=== PATIENT | female | born 1960 | race African-American/Black ===

== ENCOUNTER 2016-09-30 19:21 | Emergency (ER) | payer MEDICARE, OTHER ==
[~2016-09-30] VITALS: Ht 157.5 cm; Wt 86.2 kg
[~2016-09-30 19:21] MED LIST: AMLODIPINE BESYL5 MG ORAL; AUGMENTIN 875-1 EAC1 ORAL; CYCLOBENZAPRINE10 MG ORAL; IBUPROFEN600 MG ORAL; IBUPROFEN600 MG PO; MECLIZINE HCL25 MG ORAL; NORCO 7.5-3251 EACH PO; ROBAXIN-750750 MG PO; UNOBMED; VALIUM5 MG PO
[2016-09-30] MEDS ORDERED: Ketorolac 60mg Inj IM ONE (20:00)
--- NOTE | 2016-09-30 20:01 | Emergency Room Report ---
History of Present Illness General Chief Complaint: Lower Back Pain or Injury Source: Patient, Medical Record Present Illness HPI 56-year-old female presents emergency department complaining of 10 out of 10 in severity low back pain that radiates down into the left thigh as well as left knee pain. Patient states she has a history of chronic pain in the low back and left knee and typically is prescribed tramadol regularly however she is out of her medication and her next appointment is on the of next month with her doctor. Patient states she does have an MRI scheduled at the end of this month. Patient states she has a history of arthritis she denies any fall or injury. Patient states that she took Motrin this morning without relief. Pt states she recently had MRI of the left knee, and has not received her results yet. Patient denies history of neoplastic disease or recent spinal procedures she denies fevers chills nausea or vomiting. Denies numbness tingling or loss of sensation or gross motor movements of the extremities, incontinence of bowel or bladder. Denies CP, Palpitations, LOC, AMS, dizziness, Changes in Vision, Sensation, paresthesias, or a sudden severe headache. Allergies: Coded Allergies: No Known Allergies (Unverified , 05/23/12) Patient History Past Medical History: see triage record Past Surgical History: none Pertinent Family History: none Now: No Immunizations: UTD Reviewed Nursing Documentation: PMH: Agreed, PSxH: Agreed Nursing Documentation-PMH Past Medical History: No History, Except For Hx Cardiac Problems: No - Gout, arthritis Hx Hypertension: Yes Hx Pacemaker: No Hx Asthma: No Hx COPD: No Hx Diabetes: No Hx Cancer: No Hx Gastrointestinal Problems: No Hx Dialysis: No Hx Neurological Problems: No Hx Cerebrovascular Accident: No Hx Seizures: No Review of Systems All Other Systems: negative except mentioned in HPI Physical Exam Vital Signs Date Time Temp Pulse Resp B/P Pulse Ox O2 Delivery O2 Flow Rate FiO2 09/30/16 19:24 98.1 88 14 152/75 100 Room Air Sp02 EP Interpretation: reviewed, normal General Appearance: no apparent distress, alert, GCS 15, non-toxic Head: normocephalic, atraumatic Eyes: bilateral eye PERRL, bilateral eye normal inspection ENT: hearing grossly normal, normal pharynx, no angioedema, normal voice Neck: full range of motion, supple/symm/no masses Respiratory: lungs clear, normal breath sounds, speaking full sentences Cardiovascular #1: regular rate, rhythm, no edema, normal capillary refill Cardiovascular #2: 2+ dorsalis pedis (R), 2+ dorsalis pedis (L) Genitourinary: no CVA tenderness Musculoskeletal: back normal, gait/station normal, normal range of motion, tender - Left sided paraspinal TTP, no erythema, bruising or obvious deformity noted. FROM with pain. TTp to the medial left knee. no increased ligamental laxity noted on PE. Neurologic: alert, oriented x3, responsive, motor strength/tone normal, sensory intact, normal gait, speech normal Psychiatric: judgement/insight normal, memory normal, mood/affect normal Reflexes: 4+ bicep (R), 4+ bicep (L), 4+ tricep (R), 4+ tricep (L), 4+ knee (R) , 4+ knee (L) Skin: normal color, no rash, warm/dry, well hydrated Lymphatic: no adenopathy Medical Decision Making PA Attestation Dr. Vasques is my supervising Physician whom patient management has been discussed with. Diagnostic Impression: Primary Impression: Sciatica of left side Additional Impression: Hx of chronic arthritis ER Course Pt. presents to the ED c/o Left -sided low back pain that shoots down the leg x 3 day(s). Pt has hx of arthritis and chronic pain. recently had MRI performed of the knee as that pain has been long standing. pt. states the shooting pain sensation is new. has MRI of L-spine scheduled for end of this month. Pt. states that she is out of her chronic pain medication Tramadol. Ddx considered but are not limited to Fracture, dislocation, contusion, epidural abscess, Sprain/Strain/Spasm Vital signs: are WNL, pt. is afebrile H&PE are most consistent with sciatica of the left side with hx of arthritis in the back, right shoulder and left knee. no evidence of infection , no saddle anesthesia. Pt. unable to tolerate straight leg raise. ORDERS: X-ray not required at this time, no spinous process tenderness. ED INTERVENTIONS: -350mg Soma PO - IM Toradol 60mg. D/w pt. to attend her appt. for MRI, and to schedule a sooner f/u appt. with her PCP for medication renewal. d/w pt. to return to ED with worsening or new symptoms. DISCHARGE: At this time pt. is stable for d/c to home. Will provide printed patient care instructions, and any necessary prescriptions. Care plan and follow up instructions have been discussed with the patient prior to discharge. Last Vital Signs Date Time Temp Pulse Resp B/P Pulse Ox O2 Delivery O2 Flow Rate FiO2 09/30/16 19:24 98.1 88 14 152/75 100 Room Air Disposition: HOME, SELF-CARE Condition: Stable Patient Instructions: Back Pain, Adult, Sciatica Additional Instructions: Take medications as directed. Follow up with PCP in 3-5 days, MRI is the study of choice for your symptoms. Return sooner to ED if new symptoms occur, or current symptoms become worse. Do not drink alcohol, drive, or operate heavy machinery while taking Flexeril as this may cause drowsiness. - Please note that this Emergency Department Report was dictated using [employer] developer technology software, occasionally this can lead to erroneous entry secondary to interpretation by the dictation equipment. Vivi Maxwell Sep 30, 2016 20:01
[2016-09-30] MEDS ORDERED: CYCLOBENZAPRINE10 MG ORAL (20:05)
[2016-09-30] MEDS ORDERED: TYLENOL EXTRA500 MG ORAL (20:05)
[2016-09-30 20:39] VITALS: BP 133/80
== END 2016-09-30 20:40 | disposition home or self-care (01) ==
LOC: EMR 20:39
DX: M54.32 Sciatica, left side (principal); M19.90 Unspecified osteoarthritis, unspecified site; I10 Essential (primary) hypertension; M25.562 Pain in left knee
CPT/HCPCS: 96372; 99283

== ENCOUNTER 2019-07-20 21:21 | Emergency (ER) | payer MEDICARE, OTHER ==
[~2019-07-20] VITALS: Ht 154.9 cm; Wt 122.5 kg
[~2019-07-20 21:21] MED LIST changes: +TYLENOL EXTRA500 MG ORAL
--- NOTE | 2019-07-20 21:45 | NUR ---
ED Nurse Note: Pt walked in to ED c/o pain on right leg, knee and foot S/P mechanical fall this AM. States legs gave out,. Pt has a laceration on right toe, pain at 10/10. Pt able to walk with steady gait but is c/o pain. VSS. Family members at bedside.
[2019-07-20] MEDS ORDERED: HYDROcodone/Acetamin 5/325 tab ORAL ONE (22:00)
--- NOTE | 2019-07-20 22:00 | NUR ---
ED Nurse Note: Xray at bedside.
--- NOTE | 2019-07-20 22:03 | Emergency Room Report ---
History of Present Illness General Chief Complaint: Lower Extremity Injury Source: Patient Present Illness HPI This is a 59-year-old female with a history of high blood pressure and osteoarthritis. She also has history of back pain. She said sometime her legs gave out. She was walking today and her left leg gave out. She fell and twisted her right knee. In the process she also sustained a laceration to her right fifth toe. It is been bleeding. Denies any fever chills. Pain is 8 out of 10. Worse with walking. Better with rest. She took a tramadol and it helps some. Denies any other injury. Denies any syncope. Denies any nausea vomiting. Allergies: Coded Allergies: No Known Allergies (Unverified , 07/20/19) Patient History Past Medical History: see triage record, old chart reviewed, HTN Past Surgical History: other Pertinent Family History: none Social History: Denies: smoking Now: No Immunizations: other Reviewed Nursing Documentation: PMH: Agreed; PSxH: Agreed Nursing Documentation-PMH Hx Cardiac Problems: No - Gout, arthritis Hx Hypertension: Yes Hx Pacemaker: No Hx Asthma: No Hx COPD: No Hx Diabetes: No Hx Cancer: No Hx Gastrointestinal Problems: No Hx Dialysis: No Hx Neurological Problems: No Hx Cerebrovascular Accident: No Hx Seizures: No Review of Systems Eye: Denies: eye pain, blurred vision ENT: Denies: ear pain, nose congestion, throat swelling Respiratory: Denies: cough, shortness of breath Cardiovascular: Denies: chest pain, palpitations Gastrointestinal: Denies: abdominal pain, diarrhea, nausea, vomiting Musculoskeletal: Reports: joint pain; Denies: back pain Skin: Denies: rash Neurological: Denies: headache, numbness Endocrine: Denies: increased thirst, increased urine Hematologic/Lymphatic: Denies: easy bruising All Other Systems: negative except mentioned in HPI Physical Exam Vital Signs Date Time Temp Pulse Resp B/P (MAP) Pulse Ox O2 Delivery O2 Flow Rate FiO2 07/20/19 21:35 98.1 20 132/66 (88) 98 Room Air Vitals normal Sp02 EP Interpretation: reviewed, normal General Appearance: well appearing, no apparent distress, alert, obese Head: normocephalic, atraumatic Eyes: bilateral eye PERRL, bilateral eye EOMI ENT: hearing grossly normal, normal pharynx Neck: full range of motion, supple, no meningismus, tender - to right paraspinous muscle Respiratory: chest non-tender, lungs clear, normal breath sounds Cardiovascular #1: regular rate, rhythm, no murmur Gastrointestinal: normal bowel sounds, non tender, no mass, no organomegaly, no bruit, non-distended Musculoskeletal: back normal, normal range of motion, tender - Right knee: She has diffuse tenderness. Knee is otherwise stable. Sensation normal. Pulse normal. Foot: Her fifth toe underneath there is a 1 cm laceration. Her toes curled underneath in the webspace is very tight. Psychiatric: mood/affect normal Procedures Splinting Splinting : Consent: Verbal Location: right knee Pre-Made Type: JAMESON wrap Pre-Proc Neuro Vasc Exam: normal Post-Proc Neuro Vasc Exam: normal Patient Tolerated: Well Complications: None Laceration/Wound Repair Laceration/Wound Repair : Consent: Verbal Wound Location: lower extremity Wound's Depth, Shape: linear Wound Length (cm): 2 Irrigated w/ Saline (ccs): 500 Betadine Prep?: Yes Anesthesia: 1% Lidocaine Volume Anesthetic (ccs): 2 Wound Repaired With: sutures Suture Size/Type: 5:0, proline Number of Sutures: 5 Patient Tolerated: Well Complications: None Medical Decision Making Diagnostic Impression: Primary Impression: Right knee sprain Qualified Codes: S83.91XA - Sprain of unspecified site of right knee, initial encounter Additional Impressions: Laceration of toe Qualified Codes: S91.114A - Laceration without foreign body of right lesser toe(s) without damage to nail, initial encounter Neck muscle strain Qualified Codes: S16.1XXA - Strain of muscle, fascia and tendon at neck level , initial encounter ER Course Patient with soft tissue injury from a fall. No fracture dislocation. Other X-Ray Diagnostic Results Other X-Ray Diagnostic Results #1: X-Ray ordered: Right knee x-rays # of Views/Limited Vs Complete: 4 View Indication: Pain EP Interpretation: Yes Interpretation: no dislocation, no soft tissue swelling, no fractures, other - Degenerative changes Impression: Other - Degenerative changes Electronically Signed by: Abhijit Chatterjee MD Other X-Ray Diagnostic Results #2: X-Ray ordered: Right toe x-rays # of Views/Limited Vs Complete: 3 View Indication: Pain EP Interpretation: Yes Interpretation: no dislocation, no soft tissue swelling, no fractures Impression: No acute disease Electronically Signed by: Abhijit Chatterjee MD Last Vital Signs Date Time Temp Pulse Resp B/P (MAP) Pulse Ox O2 Delivery O2 Flow Rate FiO2 07/20/19 21:35 98.1 20 132/66 (88) 98 Room Air Status: improved Disposition: HOME, SELF-CARE Condition: Stable Scripts Cephalexin* (KEFLEX*) 500 Mg Capsule 500 MG ORAL TID, #21 CAP Prov: Abhijit Chatterjee MD 07/20/19 Methocarbamol* (ROBAXIN-500*) 500 Mg Tablet 500 MG ORAL QID PRN for For Pain, #20 TAB 0 Refills Prov: Abhijit Chatterjee MD 07/20/19 Hydrocodone Bit/Acetaminophen 5-325* (NORCO 5-325*) 1 Each Tablet 1 TAB ORAL Q6H PRN for For Pain, #20 TAB 0 Refills Prov: Abhijit Chatterjee MD 07/20/19 Ibuprofen* (MOTRIN*) 600 Mg Tablet 600 MG ORAL THREE TIMES A DAY, #30 TAB 0 Refills Prov: Abhijit Chatterjee MD 07/20/19 Patient Instructions: Knee Sprain Additional Instructions: Keep wound clean. Apply antibiotic ointment after cleaning with hydroperoxide. Suture out in 14 days at the minimum. Follow-up with your doctor in 7 days for recheck. Return if worse. Abhijit Chatterjee MD Jul 20, 2019 22:03
--- NOTE | 2019-07-20 22:17 | NUR ---
ED Nurse Note: ERMD at bedside.
[2019-07-20] MEDS ORDERED: ROBAXIN-500MG ORAL (22:33)
[2019-07-20] MEDS ORDERED: IBUPROFEN600 MG ORAL (22:33)
[2019-07-20] MEDS ORDERED: NORCO 5-325 TA1 EACH ORAL (22:33)
[2019-07-20] MEDS ORDERED: CEPHALEXIN500 MG ORAL (22:33)
[2019-07-20 22:44] VITALS: BP 128/78
--- NOTE | 2019-07-20 22:44 | NUR ---
ED Nurse Note: Pt cleared by ERMD for discharge. DC instructions/prescription was given and explained to pt and verbalized understanding of teachings. All medical deviecs such as ID band removed. Pt is AAO x4, ambulatory and left with all personal belongings. Pt has an loretta bandage on her right leg. Accompanied by her family members.
[2019-07-20] MEDS ORDERED: Neosporin Oint Ud Pkt TOPIC ONE (22:45)
--- NOTE | 2019-07-21 13:27 | Diagnostic Imaging Report ---
Indication: Right toe pain Comparison: None Findings: 3 views of the right fifth toe obtained. No acute fracture, malalignment, periostitis, or osteochondral defects are identified. Bones are osteopenic. Soft tissues are unremarkable. No radiopaque foreign body identified. Impression: No acute findings
--- NOTE | 2019-07-21 13:28 | Diagnostic Imaging Report ---
Indication: Right knee Pain 3 views of the right knee were obtained. Findings: There is joint space narrowing with marginal osteophyte formation and subchondral sclerosis. No acute fracture is seen. Small joint effusion may be present. The bones are osteopenic. IMPRESSION: No acute injury identified. Moderate to severe arthrosis
== END 2019-07-20 22:44 | disposition home or self-care (01) ==
LOC: EMR 21:46
DX: S91.114A Laceration without foreign body of right lesser toe(s) without damage to nail, initial encounter (principal); S83.91XA Sprain of unspecified site of right knee, initial encounter; S16.1XXA Strain of muscle, fascia and tendon at neck level, initial encounter; X50.1XXA Overexertion from prolonged static or awkward postures, initial encounter; Y92.9 Unspecified place or not applicable; I10 Essential (primary) hypertension; M19.90 Unspecified osteoarthritis, unspecified site
CPT/HCPCS: 99284